=== PATIENT | male | born 1940 | race Asian ===

== ENCOUNTER 2016-10-27 08:33 | Inpatient (IN) | payer OTHER, MEDICAID ==
[~2016-10-27] VITALS: Ht 167.6 cm; Wt 81.6 kg
[2016-10-27] MEDS ORDERED: NACL 0.9% 1,000 ML IV SCH (08:38)
[2016-10-27 08:45] VITALS: BP 187/99; PULSE 74; RESP 18; TEMP 97.9; O2SAT 97
[2016-10-27] MEDS ORDERED: MECLIZINE HCL 25 MG TABLET (ANITVERT) PO ONE (08:45)
--- NOTE | 2016-10-27 08:45 | NUR ---
Pt BIB BLS s/p fall r/t dizziness. Family at bedside to translate. Pt AAOx4, even and non-labored respirations BBS clear. Pt denies trauma, did not hit head, no LOC. Pt from home.
--- NOTE | 2016-10-27 08:50 | NUR ---
Dr. Gaming at bedside to assess pt.
[2016-10-27 09:22] LABS: BASOPHILS % (AUTO) 0.5 % (0.0-2.0); EOSINOPHILS # (AUTO) 0.1 K/uL (0.0-0.4); EOSINOPHILS % (AUTO) 0.9 % (0.0-4.0); HEMATOCRIT 49.2 % (36-54); HEMOGLOBIN 16.7 g/dL (14.0-18.0); LYMPHOCYTES # (AUTO) 0.6 K/uL (1.0-5.5); LYMPHOCYTES % (AUTO) 9.3 % (20.5-51.5); MEAN CORPUSCULAR HEMOGLOBIN 31 pg (27-31); MEAN CORPUSCULAR HGB CONC 34 % (32-36); MEAN CORPUSCULAR VOLUME 91 fL (79.0-98.0); MONOCYTES # (AUTO) 0.1 K/uL (0.0-1.0); MONOCYTES % (AUTO) 2.1 % (1.7-9.3); NEUTROPHILS # (AUTO) 5.7 K/uL (1.8-7.7); NEUTROPHILS % (AUTO) 87.2 % (40.0-70.0); PLATELET COUNT (AUTO) 116 K/uL (130-430); RED CELL DISTRIBUTION WIDTH 13.2 % (9.0-15.0); WHITE BLOOD COUNT (AUTO) 6.5 K/uL (4.8-10.8)
--- NOTE | 2016-10-27 09:25 | NUR ---
Patient reassessed resting comfortably in rney, remains on monitor A Fib noted, no acute distress, V/S stable, no complaints at this time.
[2016-10-27 09:32] LABS: ANION GAP 5 (5-15); CALCIUM 8.6 mg/dL (8.4-11.0); CHLORIDE 107 mmol/L (98-107); CREATININE 1.17 mg/dL (0.55-1.30); GLUCOSE 195 mg/dL (70-99); SODIUM SERUM 141 mmol/L (136-145); UREA NITROGEN, BLOOD 15 mg/dL (8-21)
[2016-10-27 09:34] LABS: PROTHROMBIN TIME 10.5 SECS (9.5-12.5)
[2016-10-27 09:36] LABS: ALANINE AMINOTRANSFERASE 25 U/L (12-78); ALBUMIN 3.9 g/dL (3.4-4.8); ASPARTATE AMINOTRANSFERASE 21 U/L (10-37); TOTAL BILIRUBIN 1.2 mg/dL (0.0-1.0); TOTAL PROTEIN, SERUM 6.9 g/dL (6.4-8.3)
--- NOTE | 2016-10-27 10:18 | NUR ---
Pt up and out of bed ambulating to restroom, steady gait noted.
--- NOTE | 2016-10-27 10:22 | NUR ---
Pt returned to assigned bed, condition stable.
--- NOTE | 2016-10-27 10:28 | NUR ---
Telemetry strip printed, interpreted as ATRIAL FIBRILLATION at 76 bpm, and placed on the chart.
[2016-10-27 10:29] LABS: BILIRUBIN,URINE NEGATIVE (NEGATIVE); CLARITY/URINE CLEAR (CLEAR); COLOR,URINE YELLOW (YELLOW); GLUCOSE,URINE NEGATIVE (NEGATIVE); KETONES,URINE NEGATIVE (NEGATIVE); LEUKOCYTE ESTERASE ,URINE NEGATIVE (NEGATIVE); NITRITE, URINE NEGATIVE (NEGATIVE); PROTEIN URINE TRACE (NEGATIVE); UROBILINOGEN,URINE 0.2 (0.2-1.0)
[2016-10-27 10:34] LABS: BLOOD, URINE TRACE (NEGATIVE)
[2016-10-27 10:48] LABS: BACTERIA,URINE FEW /HPF (None Seen); MUCUS,URINE 1+ /LPF (None Seen); RBC,URINE 0-3 /HPF (0-3); WBC,URINE 0-3 /HPF (0-3)
[2016-10-27] MEDS ORDERED: cefTRIAXone 1 GM IVPB PREMIX 50 ML IV ONE ×2 (11:28→11:30)
--- NOTE | 2016-10-27 11:38 | NUR ---
Admission assessment Received patient from ER via [facility]. Patient walked to bathroom then bed with fairly steady gait, only stand by assistance for safety. Patient admitted with diagnosis of Atrial Fibrillation. Patient is awake, alert, oriented X 3, Pt is primarily Guatemalan speaking, Minimal Djib[place]ian. Patient oriented to hospital room, call light, toileting, pain management and safety-teach back done. Patient informed that Shital will be his RN and that their room number is 104A. Personal belongings checked and Belongings List documented. Call light within reach.
[2016-10-27] MEDS ORDERED: HYDR-1189 (11:44)
[2016-10-27] MEDS ORDERED: TAMS-11 (11:44)
[2016-10-27] MEDS ORDERED: SUCR1TAB (11:44)
[2016-10-27] MEDS ORDERED: DIPH25TA62 (11:44)
[2016-10-27] MEDS ORDERED: AMOX-520 (11:44)
[2016-10-27] MEDS ORDERED: LISI40TA4 (11:44)
[2016-10-27] MEDS ORDERED: ATEN50TA (11:44)
--- NOTE | 2016-10-27 11:45 | NUR ---
Patient will be admitted to care of CLYDE. Admitted to unit. Will go to room . Belongings list completed. Summary report printed. Report given to .
[2016-10-27 11:49] VITALS: BP 176/91; PULSE 85; RESP 18; TEMP 97; O2SAT 96
--- NOTE | 2016-10-27 11:49 | NUR ---
2d echo being done at this time.
[2016-10-27 11:52] VITALS: BP 176/91; PULSE 85; RESP 18; TEMP 97; O2SAT 96
--- NOTE | 2016-10-27 12:04 | NUR ---
DR TANG AT BEDSIDE DR SONIDO CUSTOMER EXPERIENCE SPECIALIST LINE, PT SPEAKS MANDARIN. PT SAID HE HAS NO CURRENT MEDICAL CONDITIONS
[2016-10-27] MEDS ORDERED: *LOVENOX 1MG/KG Q24H/PHARMACY XX ONE (12:15)
--- NOTE | 2016-10-27 12:24 | NUR ---
SPOKE TO PT AND GOT HEALTH INFORMATION USING [employer] L[employer]UAGE PHONE TRANLATOR #[id number]. PT EDUCATED TO USE CALL LIGHT WITH RETURN DEMONSTRATION NOTED. PT HAD NO FURTHER QUESTIONS AFTER DISCUSSING THE POC.
--- NOTE | 2016-10-27 14:05 | NUR ---
RN ROUNDS PT RESTING COMFORTABLY. FAMILY AT BEDSIDE.
[2016-10-27] MEDS: ENOXAPARIN SODIUM 80 MG/0.8 ML SYRINGE SUBCUT SCH (15:16)
[2016-10-27 15:37] VITALS: BP 156/95; PULSE 63; RESP 16; TEMP 98.7; O2SAT 91
--- NOTE | 2016-10-27 16:00 | NUR ---
RN ROUNDS PT RESTING COMFORTABLY AND IS NOT COMPLAINING OF PAIN. BED ALARM ARMED, BED IN LOWEST POSITION AND PATIENT EDUCATED TRUCK SPOTTER LIGHT THROUGH THE MARINE ENGINE MACHINIST LINE
--- NOTE | 2016-10-27 16:25 | NUR ---
Patients family at bedside, sister and brother both updated on the POC. Pts meds taken home by sister.
--- NOTE | 2016-10-27 18:17 | NUR ---
RN ROUNDS PT HAS FINISHED DINNER AND IS RESTING IN BED
--- NOTE | 2016-10-27 18:58 | NUR ---
CLOSING ROUNDS PT RESTING IN BED WITH NO COMPLAINT OF PAIN. BED ALARM ARMED, BED IN LOWEST POSITION AND CALL LIGHT WITHIN REACH
--- NOTE | 2016-10-27 19:15 | NUR ---
OPENING NOTES RECEIVED REPORT FROM DAYSHIFT NURSE AT BEDSIDE. PATIENT IS RESTING COMFORTABLY. NO SIGNS OR SYMPTOMS OF DISTRESS NOTED. IV IS PATENT AND SALINE LOCKED. BED IS IN LOWEST POSITION, BED ALARM IS SET, CALL LIGHT WITHIN REACH. PATIENT IS A HIGH FALL RISK AND IN DIRECT VIEW FROM NURSING STATION. PATIENT DOES NOT SPEAK SLOVENIAN AND BLUE PHONE IS AT BEDSIDE. WILL CONTINUE TO MONITOR.
--- NOTE | 2016-10-27 20:30 | NUR ---
PAGED DR. TANG/DR. RICHEY BOBBIN HANDLER
--- NOTE | 2016-10-27 20:34 | NUR ---
PAGED KAIDEN EMISSIONS INSPECTOR FOR CLYDE
[2016-10-27 20:36] VITALS: BP 141/80; PULSE 57; RESP 20; TEMP 97.4; O2SAT 97
[2016-10-27] MEDS: METOPROLOL TARTRATE 25 MG TABLET PO SCH (21:00)
[2016-10-27] MEDS ORDERED: INSULIN REGULAR, HUMAN 100 UNITS/ML, 10 ML VIAL (novoLIN R) SUBCUT PRN (21:00)
[2016-10-27] MEDS ORDERED: ACETAMINOPHEN 500 MG TABLET PO PRN (21:00)
--- NOTE | 2016-10-27 21:09 | NUR ---
Consultation Paged Reason for consultation: AFIB Was consult called: Yes Person who was notified: [employer] Consulting Physician: Joey Burroughs Naval Marine Engineer Specialty: Entry Level Software Engineer
[2016-10-27 21:15] VITALS: BP 152/78; PULSE 54; RESP 19; TEMP 98.4; O2SAT 97
--- NOTE | 2016-10-27 21:15 | NUR ---
DR. RICHEY IN NURSES STATION/NEW ORDERS GIVEN MD ORDERED ACCU CHECKS AND SLIDING SCALE WHICH WAS ADJUSTED, TYLENOL MEDICATION, BLOOD CULTURES, ANTIBIOTIC, CARDIAC CONSULT, BLOOD PRESSURE MEDICATION PARAMETERS. ALL ORDERS IN PLACE.
--- NOTE | 2016-10-27 21:20 | NUR ---
DR RICHEY MAKING ROUNDS, NEW ORDERS GIVEN.
--- NOTE | 2016-10-27 21:28 | NUR ---
NOTES BLOOD CULTURES BEING DRAWN X2.
--- NOTE | 2016-10-27 21:35 | NUR ---
DR. LYLE CALLED NEW ORDERS MD AWARE OF REASON PATIENT WAS ADMITTED, VITAL SIGNS, HEART RHYTHYM, MEDICATIONS HE IS TAKING. MD ORDERED D5 0.5NS AT 50ML/HR AND EKG IN THE MORNING. ORDERS IN PLACE.
[2016-10-27] MEDS: D5/0.45 NS 1,000 ML IV SCH (22:27)
--- NOTE | 2016-10-27 23:00 | NUR ---
BATHROOM ASSISTED PATIENT FROM BED TO BATHROOM, OBSERVED STEADY GAIT. NO COMPLAINT OF DIZZINESS.
[2016-10-28] VITALS: BP 136/72; PULSE 55; RESP 16; TEMP 97.2; O2SAT 97
--- NOTE | 2016-10-28 01:00 | NUR ---
NOTES PATIENT SLEEPING COMFORTABLY. NO SIGNS OR SYMPTOMS OF DISTRESS NOTED. IV FLUIDS RUNNING. BED IN LOWEST POSITION, BED ALARM ON, CALL LIGHT WITHIN REACH. WILL CONTINUE TO MONITOR.
--- NOTE | 2016-10-28 03:00 | NUR ---
NOTES PATIENT SLEEPING. VISIBLE RISE AND FALL OF CHEST NOTED. NO SIGNS OR SYMPTOMS OF DISTRESS NOTED. BED IN LOWEST POSITION, B ED ALARM ON. WILL CONTINUE TO MONITOR.
[2016-10-28 04:36] VITALS: BP 152/78; PULSE 46; RESP 16; TEMP 98.4; O2SAT 98
--- NOTE | 2016-10-28 05:35 | NUR ---
ASSISTED PT TO RESTROOM ASSISTED PT TO RESTROOM THEN BACK TO BED, NOTED WEAKNESS, REMINDED PT TO CALL FOR ASSISTANCE, PT NODDED. SHOWED PT HOW TO USE CALL LIGHT. BED ALARM ON. FALL RISK PRECAUTIONS IN PLACE, CALL LIGHT WITHIN REACH. ROOM ACROSS NURSES STATION.
--- NOTE | 2016-10-28 06:17 | NUR ---
CLOSING NOTES PATIENT IS RESTING IN BED, SEMI-FOWLERS. NO SIGNS OR SYMPTOMS OF DISTRESS NOTED. IV IS PATENT AND FLUIDS RUNNING. PATIENT DENIES PAIN. ALL NEEDS WERE ME DURING SHIFT. BED IN LOWEST POSITION, BED ALARM ON, CALL LIGHT WITHIN REACH. WILL ENDORSE CARE TO THE DAY SHIFT NURSE.
--- NOTE | 2016-10-28 07:30 | NUR ---
RN OPENING NOTE PT IS A/O X4 AND RESTING IN BED AND GAVE THE "THUMBS UP" SIGN WHEN ASKED IF HE NEEDED ANYTHING. PT DOES NOT APPEAR TO BE IN PAIN. BED IN LOWEST POSITION, BED ALARM SET BECAUSE HE TENDS TO GET UP ON HIS OWN YET IS ATTACHED TO AN IV LINE, AND CALL LIGHT WITHIN REACH.
[2016-10-28 07:55] VITALS: BP 149/112; PULSE 71; RESP 16; TEMP 96.8; O2SAT 98
--- NOTE | 2016-10-28 09:00 | NUR ---
PT FAMILY AT BEDSIDE. ASSISTED PT TO BATHROOM (VOID X1) AND REATACHED IV LINE. BED IN LOWEST POSITION AND CALL LIGHT WITHIN REACH.
[2016-10-28] MEDS: METOPROLOL TARTRATE 25 MG TABLET PO SCH ×2 (09:07→21:16)
--- NOTE | 2016-10-28 10:05 | NUR ---
Family at bedside at this time. Pt stable, bed alarm on, call light within reach.
[2016-10-28] MEDS: cefTRIAXone 1 GM IVPB PREMIX 50 ML IV SCH (10:22)
[2016-10-28 12:00] VITALS: BP 144/65; PULSE 60; RESP 18; TEMP 97.1; O2SAT 96
--- NOTE | 2016-10-28 12:00 | NUR ---
Rounds Patient resting quietly and comfort. Call light in reach.
[2016-10-28 12:11] LABS: BASOPHILS % (AUTO) 0.7 % (0.0-2.0); EOSINOPHILS # (AUTO) 0.1 K/uL (0.0-0.4); HEMATOCRIT 46.9 % (36-54); HEMOGLOBIN 16.4 g/dL (14.0-18.0); LYMPHOCYTES # (AUTO) 1.3 K/uL (1.0-5.5); LYMPHOCYTES % (AUTO) 21.9 % (20.5-51.5); MEAN CORPUSCULAR HEMOGLOBIN 32 pg (27-31); MEAN CORPUSCULAR HGB CONC 35 % (32-36); MEAN CORPUSCULAR VOLUME 91 fL (79.0-98.0); MONOCYTES # (AUTO) 0.3 K/uL (0.0-1.0); MONOCYTES % (AUTO) 5.1 % (1.7-9.3); NEUTROPHILS # (AUTO) 4.3 K/uL (1.8-7.7); NEUTROPHILS % (AUTO) 70.3 % (40.0-70.0); PLATELET COUNT (AUTO) 119 K/uL (130-430); RED BLOOD CELL COUNT(AUTO) 5.16 MIL/uL (4.2-6.2); RED CELL DISTRIBUTION WIDTH 12.9 % (9.0-15.0)
[2016-10-28 12:29] LABS: ANION GAP 4 (5-15); CALCIUM 8.4 mg/dL (8.4-11.0); CHLORIDE 108 mmol/L (98-107); GLUCOSE 95 mg/dL (70-99); POTASSIUM 4.3 mmol/L (3.5-5.1); SODIUM SERUM 139 mmol/L (136-145)
[2016-10-28 12:30] LABS: CREATININE 1.02 mg/dL (0.55-1.30); UREA NITROGEN, BLOOD 12 mg/dL (8-21)
[2016-10-28] MEDS ORDERED: MECLIZINE HCL 25 MG TABLET (ANITVERT) PO ONE (12:30)
[2016-10-28 12:36] LABS: THYROID STIMULATING HORMONE 1.27 uIu/mL (0.36-3.74)
[2016-10-28] MEDS ORDERED: LISINOPRIL 20 MG TABLET PO ONE (12:45)
[2016-10-28 12:47] LABS: ALANINE AMINOTRANSFERASE 19 U/L (12-78); ALBUMIN 3.3 g/dL (3.4-4.8); ASPARTATE AMINOTRANSFERASE 24 U/L (10-37); TOTAL PROTEIN, SERUM 6.1 g/dL (6.4-8.3)
[2016-10-28] MEDS: ENOXAPARIN SODIUM 80 MG/0.8 ML SYRINGE SUBCUT SCH (13:31)
--- NOTE | 2016-10-28 14:00 | NUR ---
RN ROUNDS PT APPEARED TO HAVE QUESTIONS ABOUT GOING HOME, SO I USED THE PARK NATURALIST LINE TO EXPLAIN THERE WERE NO ORDERS FOR HIM TO GO HOME TODAY AND THAT WE WOULD LET HIM KNOW SOO0N THE DR ORDERS A DC. ASSISTED PT TO BATHROOM AND ENSURED HE WAS BACK IN HIS BED. BED ALARM SET AND IN LOWEST POSITION, CALL LIGHT WITHIN REACH
[2016-10-28] MEDS: MECLIZINE HCL 25 MG TABLET (ANITVERT) PO SCH ×2 (14:34→21:15)
[2016-10-28 16:00] VITALS: BP 151/64; PULSE 66; RESP 18; TEMP 97.3; O2SAT 97
--- NOTE | 2016-10-28 16:27 | NUR ---
RN NOTES PT RESTING IN BED. NO REPORT OF PAIN, BED IN LOWEST POSITION, ALARM SET AND CALL LIGHT WITHIN REACH
[2016-10-28] MEDS: D5/0.45 NS 1,000 ML IV SCH (18:21)
--- NOTE | 2016-10-28 18:27 | NUR ---
Closing note Pt ate 100% of his dinner. Patient resting comfortable, no signs of pain, or any discomfort. IV flushed at this time and IV fluids changed. Pts bed exit alarm armed. Though patient is steady, encouraged him to call for assistance using the call light. All needs met for this patient.
--- NOTE | 2016-10-28 19:20 | NUR ---
OPENING NOTES RECEIVED REPORT AT BEDSIDE FROM DAY SHIFT. PATIENT RESTING COMFORTABLY. VISIBLE RISE AND FALL OF THE CHEST NOTED. BED IN LOWEST POSITION, BED ALARM ON, CALL LIGHT WITHIN REACH.
--- NOTE | 2016-10-28 21:20 | NUR ---
ROUNDS PATIENT IS SITTING UP IN GOOD SPIRITS. FAMILY AT BEDSIDE. IV RUNNING. NO SIGNS OR SYMPTOMS OF DISTRESS NOTED. BED IN LOWEST POSITION. BED ALARM ON. CALL LIGHT WITHIN REACH. WILL CONTINUE TO MONITOR FREQUENTLY.
--- NOTE | 2016-10-28 23:20 | NUR ---
ROUNDS PATIENT IS SLEEPING COMFORTABLY. VISIBLE RISE AND FALL OF CHEST. IV RUNNING. NO SIGNS OR SYMPTOMS OF DISTRESS NOTED. BED IN LOWEST POSITION. BED ALARM ON. CALL LIGHT WITHIN REACH. WILL CONTINUE TO MONITOR FREQUENTLY.
[2016-10-28 23:50] VITALS: BP 130/88; PULSE 59; RESP 18; TEMP 97.2; O2SAT 97
--- NOTE | 2016-10-29 01:20 | NUR ---
ROUNDS PATIENT IS SLEEPING COMFORTABLY. VISIBLE RISE AND FALL OF CHEST. NO SIGNS OR SYMPTOMS OF DISTRESS NOTED. BED IN LOWEST POSITION. BED ALARM ON. CALL LIGHT WITHIN REACH. WILL CONTINUE TO MONITOR FREQUENTLY.
--- NOTE | 2016-10-29 03:30 | NUR ---
ROUNDS PATIENT IS RESTING COMFORTABLY, SITTING UP IN BED. PATIENT DENIES PAIN. NO SIGNS OR SYMPTOMS OF DISTRESS NOTED. BED IN LOWEST POSITION. BED ALARM ON. CALL LIGHT WITHIN REACH. WILL CONTINUE TO MONITOR FREQUENTLY.
[2016-10-29 03:45] VITALS: BP 130/74; PULSE 60; RESP 18; TEMP 97.4; O2SAT 96
--- NOTE | 2016-10-29 05:25 | NUR ---
ROUNDS PATIENT IS SLEEPING. VISIBLE RISE AND FALL OF CHEST. NO SIGNS OR SYMPTOMS OF DISTRESS NOTED. BED IN LOWEST POSITION. BED ALARM ON. CALL LIGHT WITHIN REACH. WILL CONTINUE TO MONITOR FREQUENTLY.
--- NOTE | 2016-10-29 06:23 | NUR ---
CLOSING NOTES PATIENT IS RESTING COMFORTABLY IN BED IN SEMI-FOWLERS POSITION. PATIENT DENIES PAIN. NO SIGNS OR SYMPTOMS OF DISTRESS NOTED. ALL NEEDS WERE MET DURING SHIFT. BED IN LOWEST POSITION, BED ALARM ON, CALL LIGHT WITHIN REACH. WILL ENDORSE CARE TO DAYSHIFT NURSE.
--- NOTE | 2016-10-29 07:17 | NUR ---
AM ROUNDS: No s/s of distress noted. Will continue to monitor.
[2016-10-29 07:56] VITALS: BP 166/96; PULSE 83; RESP 20; TEMP 98.7; O2SAT 99
[2016-10-29] MEDS: METOPROLOL TARTRATE 25 MG TABLET PO SCH ×2 (07:59→20:15)
[2016-10-29] MEDS: MECLIZINE HCL 25 MG TABLET (ANITVERT) PO SCH ×3 (07:59→20:14)
[2016-10-29] MEDS: cefTRIAXone 1 GM IVPB PREMIX 50 ML IV SCH (08:00)
[2016-10-29] MEDS ORDERED: LISINOPRIL 20 MG TABLET PO SCH (09:00)
--- NOTE | 2016-10-29 09:06 | NUR ---
Nutrition Update Garrett Scale 18 noted. Pt admitted for atr fibr. Diet: 2 gm Na BMI: 29.1 kg/m2 RD to follow per nutrition care standards.
--- NOTE | 2016-10-29 10:07 | NUR ---
PATIENT RESTING: Patient resting quietly. No acute distress noted. Vital signs within normal range.
--- NOTE | 2016-10-29 11:11 | NUR ---
Neurology consult Order received for a consult with Dr Reynoso for dizziness. Call was placed to his [place] office [phone], spoke with Renita. Will follow up as needed.
[2016-10-29 11:25] VITALS: BP 161/69; PULSE 87; RESP 16; TEMP 97.9; O2SAT 96
--- NOTE | 2016-10-29 12:34 | NUR ---
PATIENT RESTING: Patient resting quietly. No acute distress noted. Vital signs within normal range.
--- NOTE | 2016-10-29 14:49 | NUR ---
PATIENT RESTING: Patient resting quietly. No acute distress noted. Vital signs within normal range.
[2016-10-29 15:32] VITALS: BP 171/78; PULSE 59; RESP 16; TEMP 98.1; O2SAT 96
--- NOTE | 2016-10-29 15:54 | NUR ---
PAGED: Dr. Torre paged for high bp readings.
[2016-10-29] MEDS ORDERED: LISINOPRIL 20 MG TABLET PO ONE (16:00)
--- NOTE | 2016-10-29 16:05 | NUR ---
PATIENT RESTING: Patient resting quietly. No acute distress noted. Vital signs within normal range.
--- NOTE | 2016-10-29 17:59 | NUR ---
CLOSING NOTE: All needs met. No change in assessment. Will endorse to NOC shift nurse.
[2016-10-29] MEDS ORDERED: RIVAROXABAN 10 MG TABLET PO SCH (18:00)
--- NOTE | 2016-10-29 19:45 | NUR ---
PM SHIFT ASSESSMENT Received patient in bed, aox4, vital signs stable. Denies any pain or discomfort at this time, IV line to right ac intact and patent, saline locked, poc discussed with patient, verbalized understanding, oriented to use call light for nurse assistance, call light within reach, safety measures in place, bed alarm on, will continue to monitor.
[2016-10-29 19:59] VITALS: BP 157/107; PULSE 74; RESP 20; TEMP 97.6; O2SAT 96
--- NOTE | 2016-10-29 21:00 | NUR ---
RN ROUNDS Patient's due medications administered, blood sugar check 117 this pm. Patient educated on medications, verbalized understanding, reoriented to use call light for nurse assistance, call light within reach, will monitor.
[2016-10-29] MEDS ORDERED: ATORVASTATIN 20 MG TABLET PO SCH (21:30)
--- NOTE | 2016-10-29 22:18 | NUR ---
RN ROUNDS Patient resting quietly in bed, due medications administered earlier, safety measures in place, bed alarm on, call light within reach, will closely monitor.
[2016-10-30 00:34] VITALS: BP 157/77; PULSE 67; RESP 20; TEMP 97.3; O2SAT 99
--- NOTE | 2016-10-30 00:47 | NUR ---
RN ROUNDS Patient resting quietly in bed, vitals stable, safety measures in place, bed alarm on, call light within reach, will closely monitor.
--- NOTE | 2016-10-30 02:21 | NUR ---
RN ROUNDS Patient resting quietly in bed, safety measures in place, bed alarm on, call light within reach, will closely monitor.
--- NOTE | 2016-10-30 04:18 | NUR ---
RN ROUNDS Patient awake, ambulated to bathroom with standby assistance, vitals stable. Denies any pain at this time. Bed alarm on, call light within reach, will monitor.
[2016-10-30 04:30] VITALS: BP 147/85; PULSE 92; RESP 20; TEMP 97.2; O2SAT 99
--- NOTE | 2016-10-30 06:29 | NUR ---
RN ROUNDS Patient awake, blood sugar check this am 92. Patient denies any pain or discomfort at this time, needs attended to, safety measures in place, bed alarm on, call light remains within reach, will monitor until report given am nurse.
[2016-10-30 07:36] LABS: CHOLESTEROL 193 mg/dL (<200); HDL CHOLESTEROL 47 mg/dL (>45); LDL CHOLESTEROL 129 mg/dL (<100); TRIGLYCERIDES 116 mg/dL (30-150)
--- NOTE | 2016-10-30 07:41 | NUR ---
AM ROUNDS: No s/s of distress noted. Will continue to monitor.
[2016-10-30 08:18] VITALS: BP 152/93; PULSE 64; RESP 20; TEMP 97.1; O2SAT 99
[2016-10-30] MEDS: METOPROLOL TARTRATE 25 MG TABLET PO SCH (08:22)
[2016-10-30] MEDS: MECLIZINE HCL 25 MG TABLET (ANITVERT) PO SCH (08:22)
[2016-10-30] MEDS: cefTRIAXone 1 GM IVPB PREMIX 50 ML IV SCH (08:25)
[2016-10-30] MEDS ORDERED: LISINOPRIL 20 MG TABLET PO SCH (09:00)
--- NOTE | 2016-10-30 10:00 | NUR ---
PATIENT RESTING: Patient resting quietly. No acute distress noted. Vital signs within normal range.
--- NOTE | 2016-10-30 10:37 | NUR ---
COMMUNICATION: Dr. Sanchez states patient is cleared for discharge.
[2016-10-30 10:38] VITALS: BP 156/85; PULSE 62; RESP 20; TEMP 98.5; O2SAT 100
[2016-10-30 11:23] VITALS: BP 156/85; PULSE 62; RESP 20; TEMP 98.5; O2SAT 100
--- NOTE | 2016-10-30 12:00 | NUR ---
PATIENT RESTING: Patient resting quietly. No acute distress noted. Vital signs within normal range.
--- NOTE | 2016-10-30 12:29 | NUR ---
D/C Patient Patient given medication reconciliation form and D/C instructions. Exit Care provided. Patient verbalized understanding. MD discussed with patient the results and treatment provided. Ambulatory with steady gait for discharge to home. Patient in stable condition, ID band removed. IV catheter removed, intact and dressing applied, no active bleeding. Rx of meclazine, lipitor, lopressor, xarelto given. Patient educated on pain management. All belongings sent with patient.
--- NOTE | 2016-10-31 16:41 | NUR ---
Discharge Follow Up Phone Call DEVELOPER ADVISOR phoned patient, , and spoke with his daughter, Vira. Vira stated that the patient was doing okay. He saw his PCP today and filled his new prescriptions. They have no questions or concerns. No further calls needed.
== END 2016-10-30 12:30 | disposition home or self-care (01) | DRG 149 ==
LOC: SED 08:33 → STU 11:11 → SMU 10-30 11:40
PROVIDERS: ADMIT Internal Medicine Hospice and Palliative Medicine; ATTEND Internal Medicine Hospice and Palliative Medicine
DX: R42 Dizziness and giddiness (principal); I48.2 Chronic atrial fibrillation; E11.9 Type 2 diabetes mellitus without complications; I10 Essential (primary) hypertension; N40.0 Benign prostatic hyperplasia without lower urinary tract symptoms; W06.XXXA Fall from bed, initial encounter; Z79.899 Other long term (current) drug therapy; Y93.89 Activity, other specified; Y92.89 Other specified places as the place of occurrence of the external cause; Y99.8 Other external cause status
CPT/HCPCS: 36415; 70450-TC; 70551; 71010; 80053; 80061; 81000-TC; 82962; 83605; 84443-TC; 84484; 85025; 85610-TC; 85730-TC; 87040-TC; 93005; 93306; 93880; 96361; 96365; 99291; J0696; J1650; J1815; J8597